=== PATIENT | female | born 1960 | race Caucasian/White ===

== ENCOUNTER → 2016-11-04 | Outpatient (CLI) | payer MEDICAID ==
--- NOTE | 2016-11-04 16:14 | DX ---
Single view abdomen at 1513 hours History: Constipation with overflow diarrhea. Findings: Scattered gas in the colon without distention. Stool noted in the right colon without signi ficant stool in the transverse, descending or rectosigmoid colon. Air in the right colon without dist ention. Mild levoscoliosis. Impression: No evidence of constipation or bowel obstruction.
== END ==
LOC: BMCIMAGING 15:13
PROVIDERS: ATTEND Physician Assistant
DX: R19.7 Diarrhea, unspecified (principal)